=== PATIENT | female | born 1975 | race African-American/Black ===

== ENCOUNTER 2019-09-30 00:26 | Outpatient (CLI) | payer OTHER, SELFPAY ==
[2019-09-30 16:19] LABS: SARS-CoV-2 RNA PCR Negative
== END 2019-09-30 00:27 | disposition home or self-care (01) ==
LOC: ANHCOVIDDT 00:26
PROVIDERS: PCP Family Medicine Sports Medicine; Visit Provider Internal Medicine Gastroenterology
DX: Z01.818 Encounter for other preprocedural examination (principal); Z11.59 Encounter for screening for other viral diseases
CPT/HCPCS: 87635; C9803; U0003

== ENCOUNTER 2019-10-03 01:38 | Day surgery (SDC) | payer OTHER, SELFPAY ==
[2019-09-26 13:38] VITALS: BMI 65.1
--- NOTE | 2019-10-03 08:10 | WPDANESEPPF ---
Anes - Initial Pre Proc Eval Procedure: Operation Date: 10/03/19 09:15 Proposed Procedures p Esophagogastroduodenoscopy & Colonoscopy - Rad Mg MD Date/Time: 10/03/19 08:10 Surgeon: Rad Mg MD Pre Op Diagnosis: Abdomen pain, constipation Patient Data Age: 43 Gender: F Height: 1.56 m Weight: 159 kg Allergies Allergy/AdvReac Type Severity Reaction Status Date / Time No Known Allergies Allergy Unverified 10/03/19 08:25 Home Medications Medication Instructions Recorded Confirmed Type peg 3350-electrolytes 236 240 ml PO Q10M #4000 ml 09/29/19 Rx gram-22.74 gram-6.74 gram-5.86 gram solution Patient hx anesthesia problems: none Family hx anesthesia problems: none [facility] Past Medical History Medical History (Updated 10/03/19 @ 08:11 by Gordo Fletcher MD) Bowel habit changes Dyspepsia Left flank pain Morbid obesity with BMI of 60.0-69.9, adult Anes - Eval Final PreProcedure Day of Procedure 10/03/19 08:10 Patient weight: super morbidly obese Heart: regular rate and rhythm Lungs: clear to auscultation and normal air movement Airway: Mallampati scale class II Neurological: alert and oriented Last oral intake: >/= 8 hours ASA classification: III Emergent: no Anesthetic plan: proceed Anesthesia type and monitoring: general GIVS Informed Consent: The patient's anesthetic plan and its attendant risks and benefits were discussed with the patient/family/POA. Questions were solicited and answers provided to the satisfaction of the patient/family/POA.
[2019-10-03 08:27] VITALS: BP 135/86; PULSE 87; RESP 20; TEMP 36.2; O2SAT 100
[2019-10-03] MEDS: LACTATED RINGERS 1,000 ML 150 ML IV CONT (08:47)
--- NOTE | 2019-10-03 09:14 | PM.HPGS ---
History of Present Illness History of Present Illness Consent: Risks, benefits, and alternatives have been discussed and questions answered. Patient agrees to proceed with procedure. Chief complaint: Abdomen pain, constipation Narrative: Kim Batista is a 43 year old female with 2 months of left flank pain with radiation to epigastric- ct scan negative Review of Systems Constitutional: Constitutional: Denies headache(s) and Denies weakness Eyes: Eyes: Denies blurry vision ENT: Reports Normal hearing present, Denies headache(s) and Denies neck pain Cardiovascular: Cardiovascular: Denies chest pain and Denies dyspnea Respiratory: Respiratory: Denies dyspnea Gastrointestinal: Gastrointestinal: Reports no additional gastrointestinal complaints Genitourinary: Genitourinary: Denies dysuria Musculoskeletal: Musculoskeletal: Denies neck pain Integumentary/Breasts: Skin/Breast: Denies dry skin Neurologic: Reports Normal hearing present, Denies headache(s) and Denies weakness Psychiatric: Psychiatric: Denies anxiety Endocrine: Endocrine: Denies change in body appearance Hematologic/Lymphatic: Hematologic/Lymphatic: Denies easy bleeding Allergic/Immunologic: Allergic/Immunologic: Denies urticaria PMFSH Past Medical History Medical History (Updated 10/03/19 @ 08:11 by Gordo Fletcher MD) Bowel habit changes Dyspepsia Left flank pain Morbid obesity with BMI of 60.0-69.9, adult Meds Home Medications and Allergies Home Medications Medication Instructions Recorded Confirmed Type No Home Medications 10/03/19 10/03/19 History Allergies Allergy/AdvReac Type Severity Reaction Status Date / Time No Known Allergies Allergy Unverified 10/03/19 08:25 Vital Signs Vital Signs - 24 hr 10/03/19 08:27 Temperature 97.2 F L Pulse Rate 87 Respiratory Rate 20 Blood Pressure 135/86 Pulse Oximetry 100 Exam Const: General: comfortable and no acute distress Nutritional Appearance: obese HENMT: General nose exam: Normal nares present Eyes: General: appearance normal, both eyes and all related structures Neck: Neck: no JVD Resp: Auscultation: clear to auscultation bilaterally Cardio: Rate: regular rate Rhythm: regular rhythm GI: Inspection: non-distended GI Palp: Yes Soft to palpation Skin: General skin exam: normal color Neuro: General: gait normal Speech: normal speech Extrem: General: normal to inspection Psych: Mental Status: mental status grossly normal Assessment and Plan Assessment and plan (1) Left flank pain: Code(s): R10.9 - Unspecified abdominal pain Status: Acute Assessment and Plan: will proceed with egd and colonoscopy, work up negative thus far. Bentyl did not help (2) Morbid obesity with BMI of 60.0-69.9, adult: Code(s): E66.01 - Morbid (severe) obesity due to excess calories; Z68.44 - Body mass index (BMI) 60.0-69.9, adult Status: Acute (3) Dyspepsia: Code(s): R10.13 - Epigastric pain Status: Acute
[2019-10-03] MEDS: BENZOCAINE (*SP) 60 ML SPRAY CAN (HURRICAINE) 1 SPRAY MUCOUS MEM (09:18)
--- NOTE | 2019-10-03 09:20 | SUR.OPER ---
0913 UPDATED FAMILY (CASSY) TAKING PATIENT TO PROCEDURE ROOM
[2019-10-03 09:45] VITALS: BP 130/87; PULSE 75; RESP 19; O2SAT 100
[2019-10-03 09:55] VITALS: BP 125/82; PULSE 79; RESP 22; O2SAT 100
[2019-10-03 10:05] VITALS: BP 137/95; PULSE 76; RESP 20; O2SAT 100
== END 2019-10-03 10:16 | disposition home or self-care (01) ==
PROVIDERS: PCP Family Medicine Sports Medicine; Visit Provider Internal Medicine Gastroenterology
PROC: 0DJ08ZZ Inspection of Upper Intestinal Tract, Via Natural or Artificial Opening Endoscopic (ICD-10-PCS; CPT 43235; principal; 2019-10-03 09:15)
DX: Z12.11 Encounter for screening for malignant neoplasm of colon (principal); K64.8 Other hemorrhoids; K44.9 Diaphragmatic hernia without obstruction or gangrene; K29.50 Unspecified chronic gastritis without bleeding; B96.81 Helicobacter pylori [H. pylori] as the cause of diseases classified elsewhere; E66.01 Morbid (severe) obesity due to excess calories; Z68.44 Body mass index [BMI] 60.0-69.9, adult
CPT/HCPCS: 45378; 43239; 88305; 88342; J2704; J7120

== ENCOUNTER 2024-10-15 15:49 | Emergency (ER) | payer OTHER, SELFPAY ==
[2024-10-15] VITALS (8 sets, daily range): BP systolic 113–158; BP diastolic 69–98; PULSE 68–84; RESP 14–20; TEMP 36.5–36.6; O2SAT 97–100
--- NOTE | ~2024-10-15 | XR_ITS ---
EXAMINATION: XR chest 2V Exam Date/Time: 10/15/2024 16:25 CDT HISTORY: CP Comparison: None. RESULT: Lines, tubes, and devices: Cholecystectomy clips. Lungs and pleura: Clear. Cardiomediastinal silhouette: Unremarkable. Other: No acute osseous or upper abdominal finding. IMPRESSION: No acute cardiopulmonary process. Reviewed, dictated and finalized at location K.
--- NOTE | 2024-10-15 15:50 | ECG_ITS ---
Test Date: 2024-10-15 16:05:55 Measurements Intervals [place] Rate: 76 P: 46 CA: 140 QRS: 1 QRSD: 94 T: 9 QT: 412 QTc: 466 Interpretive Statements SINUS RHYTHM MODERATE VOLTAGE CRITERIA FOR LVH, CONSIDER NORMAL VARIANT [MEETS CRITERIA IN ONE OF: R(aVL), S(V1), R(V5), R(V5/V6)+S(V1)] No previous ECG available for comparison Electronically Signed On 10-16-2024 22:33:52 CDT by Avelino Springer M.D.
--- OUTSIDE RECORDS SUMMARY | 2024-10-15 15:51 | XMS_ITS | Clinical Summary ---
Author Organization [facility] Address [address] [place] [address] Care Team Providers Care Hogshead Head Matcher Name Role Phone Yonas Zayas MD Primary Care Provider [phone] Source Comments [facility],non-owned Affiliates and Associated Physician Practices is amultiple site organization consisting of ambulatory clinics and hospital sitesin [place] and [place]. This disclosure is being madepursuant to the Care Everywhere program and may not contain all information available regarding this patient. Last updated 17.[employer] Allergies No known active allergies Medications * Be aware that medications may not be up to date on this document. Alwaysverify current medications with the patient. oxyCODONE-aceta minophen (PERCOCET) 5-325 MG tabletIndicatio ns:Closed displaced pilon fracture of left tibia with routine healing, subsequent encounter Take 1 (one) tablet by mouth every 4 hours as needed for Pain 40 tablet 2 Active Additional Information Patient not taking.Reported on 07/15/2021 hydrOXYzine HCl (ATARAX) 25 MG tablet Take 25 mg by mouth 3 times daily as needed 2 Active HYDROcodone-jo taminophen (NORCO) 5-325 MG tabletIndicatio ns:Closed displaced pilon fracture of left tibia with routine healing, subsequent encounter Take 1 (one) tablet by mouth every 6 hours as needed for Pain 30 tablet Active Active Problems Problem Noted Date Diagnosed Date Impaired mobility and ADLs 05/20/2021 Vitamin D deficiency 05/20/2021 Obesity without serious comorbidity 05/20/2021 Closed fracture of left distal fibula 05/18/2021 Closed displaced spiral fracture of shaft of lef t tibia 05/18/2021 Acute left ankle pain 05/18/2021 Closed displaced pilon fracture of left tibia Social History Tobacco Use Types Packs/Day Years Used Date Smoking Tobacco: Never Smokeless Tobacco: Never Alcohol Use Standard Drinks/Week Comments Never 0 (1 standard drink = 0.6 oz pur e alcohol) AUDIT-C Answer Date Recorded Q1: How often do you have a drink containing alc ohol? Never 05/18/2021 Average Number of Drinks Not on file 022 Q3: How often do you have si x or more drinks on one occasion? Never 05/18/2021 Comments Unknown Sex and Gender Information Value Date Recorded Sex Assigned at Not on file Legal Sex Female 2:19 PM BOOK AUTHOR Gender Identity Not on file Sexual Orientation Not on file Last Filed Vital Signs Vital Sign Reading Time Taken Comments Blood Pressure 158/90 05/21/2021 7:31 AM BOOK AUTHOR Pulse 84 05/21/2021 7:31 AM BOOK AUTHOR Temperature 36.6 C (97.9 F) 05/21/2021 7:31 AM BOOK AUTHOR Respiratory Rate 18 05/21/2021 7:31 AM BOOK AUTHOR Oxygen Saturation 100% 05/21/2021 7:31 AM BOOK AUTHOR Inhaled Oxygen Concentration - - Weight 170.1 kg (375 lb) 08/26/2021 10:17 AM CDT Height 154.9 cm (5' 1) 08/26/2021 10:17 AM CDT Body Mass Index 70.86 08/26/2021 10:17 AM CDT Plan of Treatment Health Maintenance Due Date Last Done Comments COLOGUARD (AGES 45-75) - COL ON CA SCREENING 1976 COLON MONITORING 1976 COLONOSCOPY - COLON CA SCREENING 1976 CT COLONOGRAPHY - COLON CA SCREENING 1976 Colorectal Cancer Screening 1976 FIT - COLON CA SCREENING 1976 FLEX SIG - COLON CA SCREENING 1976 LIPID TESTING 1976 MAMMOGRAM 1976 HIV SCREENING 12/01/1991 HEPATITIS C SCREENING 11/26/1994 DTAP/TDAP/TD VACCINES (1 - Tdap) 12/01/1995 HEPATITIS B VACCINE (1 of 3 - 19+ 3-dose series) 12/01/1995 PAP SMEAR 1997 COVID-19 VACCINE (1 - 2023-2 5 season) 2023 DEPRESSION SCREENING 04/12/2024 SCREENING FOR DIABETES 05/20/2024 , 05/19/2021 INFLUENZA VACCINE (#1) 2024 ZOSTER VACCINE (1 of 2) 2026 HIB VACCINE Aged Out No longer eligi ble based on patient's age to complete this topic HPV VACCINE Aged Out No longer eligi ble based on patient's age to complete this topic MENINGOCOCCAL (Group B) VACCINE SHARED DECISION-MAKING Aged Out No longer eligible based on patient's age to complete this topic MENINGOCOCCAL GROUPS A/C/Y/W VACCINE Aged Out No longer eligible b ased on patient's age to complete this topic PNEUMOCOCCAL VACCINE Aged Out No long er eligible based on patient's age to complete this topic Medical Devices Implanted Type Area Temperature Logging Operator Device Identifier Shelf Expiration Date Model / Serial / Lot Screw 3.5mm 26mm 2.5mm Nonlock Hex Drv Implanted:Qty: 1 on 05/19/2021 by Cullen Tirado DO at [facility] Left: [employer] [id number] / / Screw 3.5mm 44mm T15 Lck Lopro Slf-Tap Implanted:Qty: 2 on 05/19/2021 by Cullen Tirado DO at [facility] Left: [employer] [id number] / / Plate 6 Hl Lck Lopro 2 Comp Slot Fib Lt Implanted:Qty: 1 on 05/19/2021 by Cullen Tirado DO at [facility] Left: [employer] [id number] / / Screw 2.7mm 16mm Lck Biodur 108 Nonster Implanted:Qty: 1 on 05/19/2021 by Cullen Tirado DO at [facility] Left: [employer] [id number] / / Screw 2.7mm 18mm Lck Elb Periart Ss Implanted:Qty: 2 on 05/19/2021 by Cullen Tirado, DO at [facility] Left: [employer] [id number] / / Screw 2.7mm 20mm Lck Elb Periart Ss Implanted:Qty: 1 on 05/19/2021 by Cullen Tirado, DO at [facility] Left: [employer] [id number] / / Screw 3.5mm 14mm 2.5mm Slf-Tap Sm Hex Implanted:Qty: 2 on 05/19/2021 by Cullen Tirado, DO at [facility] Left: [employer] [id number] / / Screw 3.5mm 36mm Ft Slf-Tap Hex Lopro Implanted:Qty: 1 on 05/19/2021 by Cullen Tirado, DO at [facility] Left: [employer] [id number] / / Screw 3.5mm 38mm T15 Slf-Tap Lck Tpr Implanted:Qty: 1 on 05/19/2021 by Cullen Tirado, DO at [facility] Left: [employer] [id number] / / Wire K 1.6mm 6in Hlf Bynt Pnt Ss Fx Implanted:Qty: 2 on 05/19/2021 by Cullen Tirado, DO at [facility] Left: [employer] [id number] / / Dist Tib Antlat Left Nrw 9h Implanted:Qty: 1 on 05/19/2021 by Cullen Tirado DO at [facility] Left: [employer] [id number] / / 3.5 Mm Multidirect Screw 34mm Implanted:Qty: 1 on 05/19/2021 by Cullen Tirado DO at [facility] Left: [employer] [id number] / / Screw 3.5mm 30mm T15 Slf-Tap Tip Lck Implanted:Qty: 1 on 05/19/2021 by Cullen Tirado, DO at [facility] Left: [employer] [id number] / / Screw 3.5mm 32mm T15 Lck Lopro Slf-Tap Implanted:Qty: 1 on 05/19/2021 by Cullen Tirado DO at [facility] Left: [employer] [id number] / / Explanted Type Area Temperature Logging Operator Device Identifier Shelf Expiration Date Model / Serial / Lot 3.5 Mm Multidirect Screw 34mm Explanted:Qty: 1 on 05/19/2021 by Cullen Tirado DO at [facility] Left: [employer] [id number] / / Procedures Procedure Name Priority Date/Time Associated Diagnosis Comments BASIC METABOLIC PANEL (CALCIUM TOTAL) PENDING DISCHARGE 05/20/2021 12:15 PM BOOK AUTHOR from Last 3 Months or Most Recently Relevant to Health Maintenance Results * (ABNORMAL) BASIC METABOLIC PANEL (CALCIUM TOTAL) (05/20/2021 12:15 PM BOOK AUTHOR) BUN 8 7 - 26 mg/dL 05/20/2021 1:06 PM [facility] Creatinine 0.85 0.56 - 0.96 mg/dL 05/20/2021 1:06 PM [facility] Sodium 140 136 - 145 mmol/L 05/20/2021 1:06 PM [facility] Potassium 3.9 3.5 - 4.5 mmol/L 05/20/2021 1:06 PM [facility] Chloride 100 98 - 107 mmol/L 05/20/2021 1:06 PM [facility] CO2 33(H) 22 - 29 mmol/L 05/20/2021 1:06 PM [facility] Glucose 91 70 - 115 mg/dL 05/20/2021 1:06 PM [facility] Calcium 9.0 8.4 - 10.2 mg/dL 05/20/2021 1:06 PM [facility] Anion Gap 11 8 - 18 05/20/2021 1:06 PM [facility] BUN/Creatinine Ratio 9 7 - 23 05/20/2021 1:06 PM [facility] Osmolality Calculated 288 270 - 300 mOsm/kg 05/20/2021 1:06 PM [facility] eGFR by CKD-EPI 87(L) >=90 mL/min/1.7 3 m2 05/20/2021 1:06 PM BOOK AUTHOR [facility] Blood BLOOD SPECIMEN / Unknown Lab Venipuncture / Unknown 05/20/2021 12:15 PM BOOK AUTHOR 05/20/2021 12:38 PM BOOK AUTHOR Princess Underwood GRAVE CLEANER-CASINO CAGE CASHIER LAB - CHEMISTRY ORDERA BLES Final Result [facility] [address] [place] [address], [facility] [phone] from Last 3 Months or Most Recently Relevant to Health Maintenance Insurance CARE [facility] CARE Advance Directives * Full Code (Latest Code Status on File) Date Activated Date Inactivated Comments 05/18/2021 7:15 PM 05/21/2021 3:09 PM Care Teams Hogshead Head Matcher Relationship Specialty Start Date End Date Yonas Zayas MD [address] [place] [address] PCP - General Family Medicine 05/18/21
--- OUTSIDE RECORDS SUMMARY | 2024-10-15 15:51 | XMS_ITS | Referral Summary ---
Author Organization [address] [address] Care Team Providers Care Veterinary Surgeon Name Role Phone Kelsea Spears DC Primary Care Provider Encounters Date Type Department Care Team Description 10/15/2024 4:15 PM CDT Office Visit 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 Gender Identity Not on file Sexual Orientation Not on file Last Filed Vital Signs Vital Sign Reading Time Taken Comments Blood Pressure 149/94 10/15/2024 3:10 PM CDT Pulse 72 10/15/2024 3:10 PM CDT Temperature 36.4 C (97.6 F) 10/15/2024 3:10 PM CDT Respiratory Rate 18 10/15/2024 3:10 PM CDT Oxygen Saturation 98% 10/15/2024 3:10 PM CDT Inhaled Oxygen Concentration - - Weight 160.6 kg (354 lb) 10/15/2024 3:10 PM CDT Height 154.9 cm (5' 1) 10/15/2024 3:10 PM CDT Body Mass Index 66.89 10/15/2024 3:10 PM CDT Plan of Treatment Upcoming Encounters Date Type Department Care Team (Late st Contact Info) Description 10/15/2024 4:15 PM CDT Office Visit [facility] at [address] [address] Other chest pain (Primary Dx) Insurance [facility] CHOICE PLUS [facility] HMO/PPO Address: [facility] [address] [place] [address] Care Teams Veterinary Surgeon Relationship Specialty Start Date End Date Kelsea Spears DC [address] [place] [address] PCP - General 09/18/19
--- OUTSIDE RECORDS SUMMARY | 2024-10-15 15:51 | XMS_ITS | Encounter Summary ---
Author Organization [facility] Address [address] [place] [address] Care Team Providers Care Gambling Cashier Name Role Phone Kelsea Spears DC Primary Care Provider Reason for Referral * Cardiology (Routine) - Authorized Specialty Diagnoses / Procedures Referred By Contac t Referred To Contact Diagnoses Other chest pain Procedures ECG 12 lead Anna Hays NP [address] [place] [address] Phone: tel: [facility] Referral ID Status Reason Start Date Expiration Date V isits Requested Visits Authorized [id number] Authorized 10/15/2024 11/14/2025 1 1 Reason for Visit * Reason Comments Chest Pain Patient here for helen st pain started a few days ago. Has not been the the ER to has not taking any medication. No numbness or tingling anywhere. Encounter Details Date Type Department Care Team (Late st Contact Info) Description 10/15/2024 4:15 PM CDT Office Visit [facility] at [address] [phone] Other chest pain (Primary Dx) Social History Tobacco Use Types Packs/Day Years Used Date Smoking Tobacco: Never Assessed Comments No Sex and Gender Information Value Date Recorded Sex Assigned at Not on file Legal Sex Female 7:01 PM HR ADVISOR Gender Identity Not on file Sexual Orientation Not on file documented as of this encounter Last Filed Vital Signs Vital Sign Reading [...] Mass Index 66.89 10/15/2024 3:10 PM CDT documented in this encounter Plan of Treatment Scheduled Orders Name Type Priority Associated Diagnoses Orde r Schedule ECG 12 lead ECG Routine Other chest pain 1 Occurrences starting 10/15/2024 until 10/15/2025 documented as of this encounter Visit Diagnoses Diagnosis Other chest pain- Primary documented in this encounter Care Teams Gambling Cashier Relationship Specialty Start Date End Date Kelsea Spears DC [address] [place] [address] PCP - General 09/18/19 documented as of this encounter
--- OUTSIDE RECORDS SUMMARY | 2024-10-15 15:51 | XMS_ITS | Clinical Summary ---
Author Organization [address] Address [address] [place] [phone] Care Team Providers Care Computer Education Professor Name Role Phone Kelsea Spears DC Primary Care Provider Allergies No known active allergies Medications No known medications Encounters Date Type Department Care Team Description 10/15/2024 4:15 PM CDT Office Visit [facility] Con[facility] Care at [address] [phone] Other chest pain (Primary Dx) from Last 3 Months Social History Tobacco Use Types Packs/Day Years Used Date Smoking Tobacco: Never Assessed Comments No Sex and Gender Information Value Date Recorded Sex Assigned at Not on file Legal Sex Female 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 Gender Identity Not on file Sexual Orientation Not on file Obstetrics History Last Filed Vital Signs Vital Sign Reading [...] Description 10/15/2024 4:15 PM CDT Office Visit [facility] at [address] [phone] Other chest pain (Primary Dx) Health Maintenance Due Date Last Done Comments Breast Cancer Screening-Mammogram 1976 Cervical Cancer Screening 1976 Colon Cancer Screening-Colonoscopy 1976 Depression Screening 1976 Hepatitis C Screening 1976 DTaP/Tdap/Td Vaccine (1 - Tdap) 12/01/1987 Hepatitis B Screening 1994 Regular Well Visit/Exam 18-64 1994 Influenza Vaccine (#1) 2024 Pneumococcal vaccine <65 Aged Out No longer eligible based on patient's age to complete this topic Insurance [facility] CHOICE PLUS [facility] HMO/PPO Address: [facility] [address] [place] [phone] Care Teams Computer Education Professor Relationship Specialty Start Date End Date Kelsea Spears DC [address] [place] [address] PCP - General 09/18/19
[2024-10-15 16:09] LABS: Hematocrit 42.6 % (37.0-47.0); Hemoglobin 13.1 g/dL (12.0-15.0); Immature Granulocyte Percent A 0.2 % (0-0.5); Lymphocytes Absolute Auto 2.60 K/mm3 (0.9-3.2); Mean Corpuscular HGB Conc 30.8 g/dl (32-36); Mean Corpuscular Hemoglobin 27.5 pg (26-34); Mean Corpuscular Volume 89.5 fl (80-100); Nucleated Red Blood Cells Absolute Auto 0.000 K/mm3 (0.0-0.012); Nucleated Red Blood Cells Perc 0.0 % (0.0-0.2); Platelet Count Result 306 k/mm3 (150-375); Red Blood Count 4.76 M/mm3 (4.2-5.4); White Blood Count 9.0 K/mm3 (4.5-10.0)
[2024-10-15] MEDS: ASPIRIN 81 MG CHEWABLE TABLET 324 MG PO (16:13)
[2024-10-15 16:21] LABS: INR 1.0; Partial Thromboplastin Time 25.7 Seconds (22.3-36.8); Prothrombin Time 13.3 Seconds (11.1-14.7)
[2024-10-15 16:34] LABS: Alanine Aminotransferase 18 U/L (6-35); Albumin Level 3.9 g/dL (3.5-5.1); Alkaline Phosphatase 79 U/L (38-126); Anion Gap 8 mmol/L (4-12); Aspartate Amino Transferase 25 U/L (14-36); Bilirubin,Total 0.4 mg/dL (0.2-1.3); Blood Urea Nitrogen 11 mg/dL (7-17); Calcium 9.6 mg/dL (8.4-10.2); Carbon Dioxide 29 mmol/L (22-30); Chloride 103 mmol/L (98-107); Estimated CRCL calculation 119 ml/min; Estimated Glomerular Filt Rate > 60; Glucose 88 mg/dL (65-110); Lipase 111 U/L (23-300); Potassium 4.5 mmol/L (3.4-5.0); Sodium 140 mmol/L (137-145); Total Protein 8.1 g/dL (6.3-8.2)
--- OUTSIDE RECORDS SUMMARY | 2024-10-15 16:36 | XMS_ITS | Referral Summary ---
Author Organization [address] [address] Care Team Providers Care De Alcholizer Name Role Phone Kelsea Spears DC Primary Care Provider Encounters Date Type Department Care Team Description 10/15/2024 4:15 PM CDT Office Visit [facility] at [address] [phone] Anna Hays NP Other chest pain (Primary Dx) from Last 3 Months Allergies No known active allergies Medications No known medications Active Problems No known active problems Social History Tobacco Use Types Packs/Day Years Used Date Smoking Tobacco: Never Assessed Comments No Sex and Gender Information Value Date Recorded Sex Assigned at Not on file Legal Sex Female 7:01 PM LEAD LAYING AND GLUING MACHINE OPERATOR Gender Identity Not on file Sexual Orientation [...] 10/15/2024 3:10 PM CDT Plan of Treatment Not on file Insurance [facility] Address: [facility] [address] [place] [address] Care Teams De Alcholizer Relationship Specialty Start Date End Date Kelsea Spears DC [address] [place] [address] PCP - General 09/18/19
--- OUTSIDE RECORDS SUMMARY | 2024-10-15 16:36 | XMS_ITS | Encounter Summary ---
Author Organization [facility] Address [address] [place] [address] Care Team Providers Care Underwriting Clerks Supervisor Name Role Phone Kelsea Spears DC Primary Care Provider Reason for Referral * Cardiology (Routine) - Authorized Specialty Diagnoses / Procedures Referred By Contac t Referred To Contact Diagnoses Other chest pain Procedures ECG 12 lead Anna Hays NP [address] [place] [address] Phone: tel: [facility] Referral ID Status Reason Start Date Expiration Date V isits Requested Visits Authorized [id number] Authorized 10/15/2024 11/14/2025 1 1 Reason for Visit * Reason Comments Chest Pain Patient here for helen st pain started a few days ago. Has not been the the ER to has not taking any medication. No numbness or tingling anywhere. 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
--- OUTSIDE RECORDS SUMMARY | 2024-10-15 16:36 | XMS_ITS | Clinical Summary ---
Author Organization [address] [address] Care Team Providers Care Reading Recovery Teacher Name Role Phone Kelsea Spears DC Primary Care Provider Allergies No known active allergies Medications No known medications Active Problems No known active problems Encounters Date Type Department Care Team Description 10/15/2024 4:15 PM CDT Office Visit [facility] at [address] [phone] Anna Hays NP Other chest pain (Primary Dx) from Last 3 Months Social History Tobacco Use Types Packs/Day Years Used Date Smoking Tobacco: Never Assessed Comments No Sex and Gender Information Value Date Recorded Sex Assigned at Not on file Legal Sex Female 7:01 PM LABOR CONCILIATOR Gender Identity Not on file Sexual Orientation [...] 10/15/2024 3:10 PM CDT Plan of Treatment Health Maintenance Due [...] patient's age to complete this topic Insurance [facility] CHOICE PLUS [place] [id number] Care Teams Reading Recovery Teacher Relationship Specialty Start Date End Date Kelsea Spears DC [address] [place] [address] PCP - General 09/18/19
--- OUTSIDE RECORDS SUMMARY | 2024-10-15 16:36 | XMS_ITS | Clinical Summary ---
Author Organization [facility] Address [address] [place] [address] Care Team Providers Care Speeder Hand Name Role Phone Yonas Zayas MD Primary Care Provider [phone] Source Comments [facility],non-owned Affiliates and Associated Physician Practices is amultiple site organization consisting of ambulatory clinics and hospital sitesin [place], [place], [place] and [place]. This disclosure is being madepursuant to the Care Everywhere program and may not contain all information available regarding this patient. Last updated 17.[employer] Allergies No known active allergies Medications * [...] on file Legal Sex Female 2:19 PM STORAGE ARCHITECT Gender Identity Not on file Sexual Orientation Not on file Last Filed Vital Signs Vital Sign Reading Time Taken Comments Blood Pressure 158/90 05/21/2021 7:31 AM STORAGE ARCHITECT Pulse 84 05/21/2021 7:31 AM STORAGE ARCHITECT Temperature 36.6 C (97.9 F) 05/21/2021 7:31 AM STORAGE ARCHITECT Respiratory Rate 18 05/21/2021 7:31 AM STORAGE ARCHITECT Oxygen Saturation 100% 05/21/2021 7:31 AM STORAGE ARCHITECT Inhaled Oxygen Concentration - - Weight 170.1 [...] this topic Medical Devices Implanted Type Area Collection Specialist Device Identifier Shelf Expiration Date Model / Serial / Lot Screw 3.5mm 26mm 2.5mm Nonlock Hex Drv Implanted:Qty: 1 on 05/19/2021 by Cullen Tirado DO at [facility] Left: [employer] [id number] / / Screw 3.5mm 44mm T15 Lck Lopro Slf-Tap Implanted:Qty: 2 on 05/19/2021 by Cullen Tirado DO at [facility] Left: [employer] 1312-18-044 / / Plate 6 Hl Lck Lopro 2 Comp Slot Fib Lt Implanted:Qty: 1 on 05/19/2021 by Cullen Tirado DO at [facility] Left: [employer] [id number] / / Screw 2.7mm 16mm Lck Biodur 108 Nonster Implanted:Qty: 1 on 05/19/2021 by Cullen Tirado DO at [facility] Left: [employer] [id number] / / Screw 2.7mm 18mm Lck Elb Periart Ss Implanted:Qty: 2 on 05/19/2021 by Cullen Tirado, DO at [facility] Left: [employer] [id number] / / Screw 2.7mm 20mm Lck Elb Periart Ss Implanted:Qty: 1 on 05/19/2021 by Cullen Tirado, DO at [facility] Left: [employer] [id number] / / Screw 3.5mm 14mm 2.5mm Slf-Tap Sm Hex Implanted:Qty: 2 on 05/19/2021 by Cullen Tirado, DO at [facility] Left: [employer] [id number] / / Screw 3.5mm 36mm Ft Slf-Tap Hex Lopro Implanted:Qty: 1 on 05/19/2021 by Cullen Tirado, DO at [facility] Left: [employer] [id number] / / Screw 3.5mm 38mm T15 Slf-Tap Lck Tpr Implanted:Qty: 1 on 05/19/2021 by Cullen Tirado, DO at [facility] Left: [employer] [id number] / / Wire K 1.6mm 6in Hlf Bynt Pnt Ss Fx Implanted:Qty: 2 on 05/19/2021 by Cullen Tirado, DO at [facility] Left: [employer] [id number] / / Dist Tib Antlat Left Nrw 9h Implanted:Qty: 1 on 05/19/2021 by Cullen Tirado DO at [facility] Left: [employer] [id number] / / 3.5 Mm Multidirect Screw 34mm Implanted:Qty: 1 on 05/19/2021 by Cullen Tirado DO at [facility] Left: [employer] [id number] / / Screw 3.5mm 30mm T15 Slf-Tap Tip Lck Implanted:Qty: 1 on 05/19/2021 by Cullen Tirado, DO at [facility] Left: [employer] [id number] / / Screw 3.5mm 32mm T15 Lck Lopro Slf-Tap Implanted:Qty: 1 on 05/19/2021 by Cullen Tirado DO at [facility] Left: [employer] [id number] / / Explanted Type Area Collection Specialist Device Identifier Shelf Expiration Date Model / Serial / Lot 3.5 Mm Multidirect Screw 34mm Explanted:Qty: 1 on 05/19/2021 by Cullen Tirado DO at [facility] Left: [employer] [id number] / / Procedures Procedure Name Priority Date/Time Associated Diagnosis Comments BASIC METABOLIC PANEL (CALCIUM TOTAL) PENDING DISCHARGE 05/20/2021 12:15 PM STORAGE ARCHITECT from Last 3 Months or Most Recently Relevant to Health Maintenance Results * (ABNORMAL) BASIC METABOLIC PANEL (CALCIUM TOTAL) (05/20/2021 12:15 PM STORAGE ARCHITECT) BUN 8 7 - 26 mg/dL 05/20/2021 1:06 PM [facility] Creatinine 0.85 0.56 - 0.96 mg/dL 05/20/2021 1:06 PM [facility] Sodium 140 136 - 145 mmol/L 05/20/2021 1:06 PM [facility] Potassium 3.9 3.5 - 4.5 mmol/L 05/20/2021 1:06 PM [facility] Chloride 100 98 - 107 mmol/L 05/20/2021 1:06 PM [facility] CO2 33(H) 22 - 29 mmol/L 05/20/2021 1:06 PM [facility] Glucose 91 70 - 115 mg/dL 05/20/2021 1:06 PM [facility] Calcium 9.0 8.4 - 10.2 mg/dL 05/20/2021 1:06 PM [facility] Anion Gap 11 8 - 18 05/20/2021 1:06 PM [facility] BUN/Creatinine Ratio 9 7 - 23 05/20/2021 1:06 PM [facility] Osmolality Calculated 288 270 - 300 mOsm/kg 05/20/2021 1:06 PM [facility] eGFR by CKD-EPI 87(L) >=90 mL/min/1.7 3 m2 05/20/2021 1:06 PM STORAGE ARCHITECT [facility] Blood BLOOD SPECIMEN / Unknown Lab Venipuncture / Unknown 05/20/2021 12:15 PM STORAGE ARCHITECT 05/20/2021 12:38 PM STORAGE ARCHITECT Princess Underwood DATA TYPIST-MANAGER [facility] - CHEMISTRY ORDERA BLES Final Result [facility] [address] [place] [address], [facility] [phone] from Last 3 Months or Most Recently Relevant to Health Maintenance Insurance CARE [facility] [place] [id number] Advance Directives * Full Code (Latest Code Status on File) Date Activated Date Inactivated Comments 05/18/2021 7:15 PM 05/21/2021 3:09 PM Care Teams Speeder Hand Relationship Specialty Start Date End Date Yonas Zayas MD [address] [place] [address] PCP - General Family Medicine 05/18/21
[2024-10-15 16:45] LABS: Troponin I < 0.012 ng/mL (0.000-0.034)
--- NOTE | 2024-10-15 17:08 | ED_ITS ---
HPI - General Adult General Chief complaint: Chest Pain Stated complaint: chest pain Time Seen by Provider: 10/15/24 16:15 History of Present Illness HPI narrative: Patient 48-year-old female who presents emergency department with chief complaint of chest pain. Patient reports the last several days she has been having discomfort in her chest described as more left upper chest wall patient reports not improved by anything reports that it does come and go at times patient reports she had a stress test many years ago and not have to require cardiac catheterization or stent placement patient reports that she has no real medical issues other than being obese Related Data Allergies Allergy/AdvReac Type Severity Reaction Status Date / Time No Known Allergies Allergy Unverified 10/03/19 08:25 Review of Systems 2 Review of Systems: A 10 system review of systems was completed on the patient and is negative except for what is stated in the HPI. Nursing and ancillary documentation was reviewed. [facility] Past Medical History Medical History Morbid obesity with BMI of 60.0-69.9, adult Dyspepsia Bowel habit changes Left flank pain Exam 2 Narrative: GENERAL: Well-appearing, well-nourished, and in no acute distress. Morbidly obese HEAD: Normocephalic, atraumatic. EYES: PERRLA and EOMI. ENT: Nares clear, no rhinorrhea or epistaxis. Mucous membranes moist. NECK: Supple. CHEST: Clear to auscultation. No respiratory distress. HEART: Regular rate and rhythm. No murmur heard. Normal peripheral pulses. ABDOMEN: Soft, nontender, nondistended, normal active bowel sounds. EXTREMITIES: Normal range of motion. No edema. SKIN: Warm, dry, no rash. NEURO: No focal deficits. Alert and oriented x3. PSYCH: Normal mood and affect. Course Vital Signs Vital signs: Vital Signs Pulse Rate 84 10/15/24 15:57 Respiratory Rate 20 10/15/24 15:57 Blood Pressure 158/98 H 10/15/24 15:57 Pulse Oximetry 100 10/15/24 15:57 Oxygen Delivery Room Air 10/15/24 15:57 Temperature 36.6 C 10/15/24 17:22 Pulse Rate 75 10/15/24 19:25 Respiratory Rate 18 10/15/24 19:25 Blood Pressure 135/86 10/15/24 18:50 Pulse Oximetry 97 10/15/24 19:25 Oxygen Delivery Room Air 10/15/24 16:02 Medical Decision Making MDM Narrative Medical decision making narrative: Differential diagnosis includes ACS, atypical chest pain, noncardiac chest pain Initial EKG showed no evidence of acute ischemic changes Initial troponin was negative 3 hour troponin was negative Vital Signs Vital Signs: Vital Signs Pulse Rate 84 10/15/24 15:57 Respiratory Rate 20 10/15/24 15:57 Blood Pressure 158/98 H 10/15/24 15:57 Pulse Oximetry 100 10/15/24 15:57 Oxygen Delivery Room Air 10/15/24 15:57 Temperature 36.6 C 10/15/24 17:22 Pulse Rate 75 10/15/24 19:25 Respiratory Rate 18 10/15/24 19:25 Blood Pressure 135/86 10/15/24 18:50 Pulse Oximetry 97 10/15/24 19:25 Oxygen Delivery Room Air 10/15/24 16:02 Lab Data 10/15/24 16:03 10/15/24 16:03 Labs: Lab Results 10/15/24 10/15/24 Range/Units 16:03 19:18 WBC 9.0 (4.5-10.0) K/mm3 RBC 4.76 (4.2-5.4) M/mm3 Hgb 13.1 (12.0-15.0) g/dL Hct 42.6 (37.0-47.0) % MCV 89.5 (80-100) fl MCH 27.5 (26-34) pg MCHC 30.8 L (32-36) g/dl RDW 13.9 (11.5-14.5) % Plt Count 306 (150-375) k/mm3 MPV 9.6 (7.4-10.4) fl Immature Gran % (Auto) 0.2 (0-0.5) % Neut % (Auto) 64.0 (45.5-73.1) % Lymph % (Auto) 28.8 (18.3-44.2) % Ford % (Auto) 6.4 (2.6-8.5) % Eos % (Auto) 0.4 (0-4.4) % Baso % (Auto) 0.2 (0.2-1.2) % Lymph # (Auto) 2.60 (0.9-3.2) K/mm3 Ford # (Auto) 0.6 (0.1-0.6) K/mm3 Eos # (Auto) 0.0 (0-0.3) K/mm3 Baso # (Auto) 0.0 (0.0-0.1) K/mm3 Abs Immat Gran (auto) 0.02 (0.00-0.031) K/mm3 Absolute Neuts (auto) 5.8 (1.3-6.7) K/mm3 Absolute Nucleated RBC 0.000 (0.0-0.012) K/mm3 Nucleated RBC % 0.0 (0.0-0.2) % PT 13.3 (11.1-14.7) Seconds INR 1.0 APTT 25.7 (22.3-36.8) Seconds Sodium 140 (137-145) mmol/L Potassium 4.5 (3.4-5.0) mmol/L Chloride 103 (98-107) mmol/L Carbon Dioxide 29 (22-30) mmol/L Anion Gap 8 (4-12) mmol/L BUN 11 (7-17) mg/dL Creatinine 0.74 (0.7-1.0) mg/dL Estim Creat Clear Calc 119 ml/min Estimated GFR > 60 (59 - ) Glucose 88 (65-110) mg/dL Calcium 9.6 (8.4-10.2) mg/dL Total Bilirubin 0.4 (0.2-1.3) mg/dL AST 25 (14-36) U/L ALT 18 (6-35) U/L Alkaline Phosphatase 79 (38-126) U/L Troponin I < 0.012 < 0.012 (0.000-0.034) ng/mL Total Protein 8.1 (6.3-8.2) g/dL Albumin 3.9 (3.5-5.1) g/dL Lipase 111 (23-300) U/L Discharge Plan Discharge Clinical Impression: Atypical chest pain Patient Disposition: Home Condition: Stable Instructions: Antibiotic Form, Chest Pain (ED) Patient Language: Lithuanian Prescriptions: No Action omeprazole 20 mg capsule,delayed release(DR/EC) 20 mg PO DAILY Qty: 30 0RF Follow-up/Referrals: Glory,Maurice Mendenhall MD [Primary Care Provider] - Time of Disposition: 19:58
--- NOTE | 2024-10-15 19:23 | ECG_ITS ---
Test Date: 2024-10-15 19:34:16 Measurements Intervals [place] Rate: 64 P: 3 TN: 148 QRS: 0 QRSD: 84 T: -5 QT: 425 QTc: 441 Interpretive Statements SINUS RHYTHM MODERATE VOLTAGE CRITERIA FOR LVH, CONSIDER NORMAL VARIANT [MEETS CRITERIA IN ONE OF: R(aVL), S(V1), R(V5), R(V5/V6)+S(V1)] Compared to ECG 10/15/2024 16:05:55 No significant changes Electronically Signed On 10-16-2024 22:31:23 CDT by Avelino Springer M.D.
--- NOTE | 2024-10-15 19:23 | PC.NURSE ---
Report received from GODWIN Garcia. Assumed care of patient at this time.
[2024-10-15 19:46] LABS: Troponin I < 0.012 ng/mL (0.000-0.034)
== END 2024-10-15 20:21 | disposition home or self-care (01) ==
PROVIDERS: Emergency Medicine; Emergency Provider Emergency Medicine; PCP Family Medicine
DX: R07.89 Other chest pain (principal)
CPT/HCPCS: 36415; 71046; 80053; 83690; 84484; 85025; 85610; 85730; 93005; 99284; A9270